=== PATIENT | male | born 1970 | race Caucasian/White ===

== ENCOUNTER 2018-09-16 10:31 | Emergency (ER) | payer MEDICAID ==
[~2018-09-16] VITALS: Ht 172.7 cm; Wt 70.0 kg
[2018-09-16] MEDS ORDERED: ALBU05 IH (10:38)
[2018-09-16] MEDS ORDERED: FLUO10TA3 GT (10:38)
[2018-09-16] MEDS ORDERED: KETOROLAC 60MG/2ML VIAL IM ONE (11:15)
[2018-09-16 12:50] VITALS: BP 124/62
== END 2018-09-16 12:49 | disposition home or self-care (01) ==
LOC: ER 10:31
DX: S62.002A Unspecified fracture of navicular [scaphoid] bone of left wrist, initial encounter for closed fracture (principal); Y08.89XA Assault by other specified means, initial encounter; Y93.9 Activity, unspecified; Y92.9 Unspecified place or not applicable; M79.604 Pain in right leg
CPT/HCPCS: 73590; 96372; 99283; J1885

== ENCOUNTER 2020-11-20 11:50 | Inpatient (IN) | payer MEDICAID ==
[~2020-11-20] VITALS: Ht 172.7 cm; Wt 75.7 kg
[~2020-11-20 11:50] MED LIST: ALBU05 IH; FLUO10TA3 GT
[2020-11-20] MEDS ORDERED: SODIUM CHLORIDE 0.9% 1000ML BAG (SEPSIS BOLUS) IV ONE (12:30)
[2020-11-20] MEDS ORDERED: VANCOMYCIN 1 G PREMIX 200 ML IV ONE (12:30)
[2020-11-20] MEDS ORDERED: PIPERACILLIN/TAZ 3.375G PREMIX 50 ML IV ONE (12:30)
[2020-11-20 12:44] LABS: HEMATOCRIT. 40.6 % (42.0-52.0); HEMOGLOBIN. 13.4 g/dL (14.0-18.0); MEAN CORPUSCULAR HEMOGLOBIN 30.5 pg (28.0-32.0); MEAN CORPUSCULAR VOLUME 92.3 fL (80.0-94.0); MEAN PLATELET VOLUME 7.2 fl (7.4-10.4); PLATELET 262 x1000/uL (130-400)
[2020-11-20 12:49] LABS: CHLORIDE 105 mEq/L (98-107)
[2020-11-20 12:54] LABS: ETHANOL BLOOD < 10 mg/dL
[2020-11-20] MEDS ORDERED: LACTULOSE 20G/30ML UDC PO ONE (13:15)
[2020-11-20 13:24] LABS: PLATELET ESTIMATE NORMAL
[2020-11-20 16:17] LABS: CLARITY URINE CLEAR (CLEAR); COLOR URINE YELLOW (YELLOW); KETONES URINE NEGATIVE (NEGATIVE); LEUKOCYTE ESTERASE URINE TRACE (NEGATIVE); NITRITE URINE NEGATIVE (NEGATIVE); OCCULT BLOOD URINE NEGATIVE (NEGATIVE); PH URINE 5.5 (4.5-8.0); PROTEIN URINE NEGATIVE (NEGATIVE); SPECIFIC GRAVITY URINE 1.013 (1.005-1.030); UROBILINOGEN URINE 0.2 E.U./dL (0.2-1.0)
[2020-11-20 16:39] LABS: PHENCYCLIDINE URINE SCREEN NEGATIVE (NEGATIVE)
[2020-11-20 16:40] LABS: *AMPHETAMINES SCREEN URINE PRESUMTIVE POSITIVE (NEGATIVE); *BARBITURATES SCREEN URINE NEGATIVE (NEGATIVE); *BENZODIAZEPINES SCREEN URINE NEGATIVE (NEGATIVE); *COCAINE SCREEN URINE NEGATIVE (NEGATIVE); CANNABINOID URINE SCREEN PRESUMTIVE POSITIVE (NEGATIVE); OPIATES URINE SCREEN NEGATIVE (NEGATIVE)
[2020-11-20 16:41] LABS: METHADONE URINE SCREEN NEGATIVE (NEGATIVE)
[2020-11-20 21:00] VITALS: BP 143/100
[2020-11-20] MEDS ORDERED: ACETAMINOPHEN 325MG TABLET PO PRN (21:15)
[2020-11-20] MEDS ORDERED: LORAZEPAM 2MG/ML CPJ IV PRN (21:15)
[2020-11-20] MEDS ORDERED: PIPERACILLIN/TAZOBACTAM 3.375 G in DEXTROSE 5% WATER 50 ML IV SCH (22:00)
[2020-11-20] MEDS: PIPERACILLIN/TAZOBACTAM 3.375G in DEXT 5% WATER 50ML IV SCH (23:32)
[2020-11-20] MEDS: VANCOMYCIN 750 MG PREMIX 150 ML IV SCH (23:46)
[2020-11-21] VITALS (15 sets, daily range): BP systolic 84–130; BP diastolic 55–87
[2020-11-21] MEDS: PIPERACILLIN/TAZOBACTAM 3.375G in DEXT 5% WATER 50ML IV SCH ×3 (05:13→22:38)
[2020-11-21] MEDS ORDERED: NALOXONE HCL 1 MG/ML 2ML VIAL IV NR (06:15)
[2020-11-21] MEDS ORDERED: VECURONIUM BROMIDE 10 MG/VIAL IV ONE (08:18)
[2020-11-21] MEDS ORDERED: ETOMIDATE 2MG/ML 10ML VIAL IV ONE (08:18)
[2020-11-21] MEDS ORDERED: SODIUM CHLORIDE 0.9% 10ML VIAL ONE (08:18)
[2020-11-21] MEDS ORDERED: EPINEPHRINE 0.1MG/ML (1:10,000) 10ML SYR ONE (08:32)
[2020-11-21] MEDS ORDERED: NALOXONE HCL 0.4 MG/ML 1ML VIAL ONE (08:32)
[2020-11-21] MEDS ORDERED: NALOXONE HCL 1 MG/ML 2ML VIAL IV PRN (08:45)
[2020-11-21 10:00] LABS: HEMATOCRIT. 43.9 % (42.0-52.0); HEMOGLOBIN. 14.3 g/dL (14.0-18.0); MEAN CORPUSCULAR HEMOGLOBIN 30.8 pg (28.0-32.0); MEAN CORPUSCULAR VOLUME 94.3 fL (80.0-94.0); MEAN PLATELET VOLUME 7.5 fl (7.4-10.4); PLATELET 300 x1000/uL (130-400); RED BLOOD CELL COUNT 4.66 mill/uL (4.7-6.1); RED CELL DISTRIBUTION WIDTH 14.6 % (11.6-14.6)
[2020-11-21 10:15] LABS: CHLORIDE 104 mEq/L (98-107)
[2020-11-21] MEDS: LACTULOSE 20G/30ML UDC PO SCH ×3 (10:39→22:22)
[2020-11-21] MEDS: ENOXAPARIN 40MG/0.4ML SYR SUBCUT SCH (10:40)
[2020-11-21] MEDS: VANCOMYCIN 750 MG PREMIX 150 ML IV SCH (11:13)
[2020-11-21] MEDS ORDERED: DIGOXIN 500MCG/2ML AMP IV SCH (11:45)
[2020-11-21 12:25] LABS: BG BASE EXCESS -1.5 mmol/L (-2.0-2.0); BG CARBOXYHEMOGLOBIN 0.7 % (0.5-1.5); BG FRACTION INSPIRED OXYGEN 100; BG METHEMOGLOBIN 0.4 % (0.0-1.5); BG OXYHEMOGLOBIN 97.9 % (94.0-97.0); BG PCO2 87.6 mmHg (35.0-45.0); BG PH 7.153 (7.350-7.450); BG SAMPLE SITE RIGHT RADIAL; BG TOTAL HEMOGLOBIN 14.7 g/dL (12.0-18.0); BG VENT MODE MASK - NRB
[2020-11-21] MEDS ORDERED: DIGOXIN 500MCG/2ML AMP IV NR (13:15)
[2020-11-21] MEDS: DEXT 5%/0.45% NACL 1000ML 1,000 ML IV SCH (15:00)
[2020-11-21] MEDS ORDERED: THIAMINE HCL 100 MG in SODIUM CHLORIDE 0.9% 49 ML IV NR (15:00)
[2020-11-21] MEDS: IPRATROPIUM/ALBUTEROL 0.5-3(2.5)MG/3ML NEB HHN SCH ×2 (15:28→19:54)
[2020-11-21 17:09] LABS: BG BASE EXCESS 1.3 mmol/L (-2.0-2.0); BG CARBOXYHEMOGLOBIN 0.6 % (0.5-1.5); BG DEOXYHEMOGLOBIN 7.1 % (0.0-5.0); BG HCO3 ACT 36.4 mmol/L (22.0-26.0); BG METHEMOGLOBIN 0.2 % (0.0-1.5); BG OXYGEN SATURATION 92.8 % (92.0-98.5); BG OXYHEMOGLOBIN 92.1 % (94.0-97.0); BG PCO2 131.5 mmHg (35.0-45.0); BG PO2 73.9 mmHg (75.0-100.0); BG SAMPLE SITE RIGHT RADIAL; BG VENT MODE MASK - BIPAP
[2020-11-21 18:55] LABS: BG BASE EXCESS -1.5 mmol/L (-2.0-2.0); BG CARBOXYHEMOGLOBIN 0.5 % (0.5-1.5); BG DEOXYHEMOGLOBIN 5.6 % (0.0-5.0); BG FRACTION INSPIRED OXYGEN 50; BG HCO3 ACT 24.8 mmol/L (22.0-26.0); BG METHEMOGLOBIN 0.1 % (0.0-1.5); BG OXYGEN SATURATION 94.4 % (92.0-98.5); BG OXYHEMOGLOBIN 93.8 % (94.0-97.0); BG PCO2 47.7 mmHg (35.0-45.0); BG PH 7.334 (7.350-7.450); BG PO2 67.6 mmHg (75.0-100.0); BG SAMPLE SITE RIGHT RADIAL; BG TOTAL HEMOGLOBIN 14.2 g/dL (12.0-18.0); BG VENT MODE VENT - AC
[2020-11-21] MEDS ORDERED: PHENYLEPHRINE 100 MG in DEXT 5% WATER 240 ML IV PRN (19:00)
[2020-11-21] MEDS: PROPOFOL 10MG/ML 100ML 100 ML IV PRN (19:40)
[2020-11-21 22:08] LABS: PLATELET ESTIMATE NORMAL
[2020-11-21] MEDS: METHYLPREDNISOLONE SOD SUCC 40 MG/ML VIAL IV SCH (22:22)
[2020-11-21] MEDS: VANCOMYCIN 1 G PREMIX 200 ML IV SCH (22:38)
[2020-11-22] VITALS (47 sets, daily range): BP systolic 89–118; BP diastolic 53–82
[2020-11-22] MEDS: PROPOFOL 10MG/ML 100ML 100 ML IV PRN ×3 (01:33→22:32)
[2020-11-22] MEDS: DEXT 5%/0.45% NACL 1000ML 1,000 ML IV SCH ×2 (01:34→13:34)
[2020-11-22] MEDS: IPRATROPIUM/ALBUTEROL 0.5-3(2.5)MG/3ML NEB HHN SCH ×5 (02:47→21:22)
[2020-11-22] MEDS: LACTULOSE 20G/30ML UDC PO SCH ×3 (06:04→21:21)
[2020-11-22] MEDS: METHYLPREDNISOLONE SOD SUCC 40 MG/ML VIAL IV SCH ×3 (06:04→21:23)
[2020-11-22] MEDS: PIPERACILLIN/TAZOBACTAM 3.375G in DEXT 5% WATER 50ML IV SCH ×3 (06:12→21:21)
[2020-11-22 06:34] LABS: CHLORIDE 101 mEq/L (98-107)
[2020-11-22 06:37] LABS: HEMATOCRIT. 35.2 % (42.0-52.0); HEMOGLOBIN. 11.8 g/dL (14.0-18.0); MEAN CORPUSCULAR HEMOGLOBIN 30.6 pg (28.0-32.0); MEAN CORPUSCULAR VOLUME 91.2 fL (80.0-94.0); MEAN PLATELET VOLUME 7.7 fl (7.4-10.4); PLATELET 230 x1000/uL (130-400); RED BLOOD CELL COUNT 3.85 mill/uL (4.7-6.1); RED CELL DISTRIBUTION WIDTH 14.4 % (11.6-14.6)
[2020-11-22] MEDS: ENOXAPARIN 40MG/0.4ML SYR SUBCUT SCH (09:22)
[2020-11-22 09:39] LABS: BG BASE EXCESS 4.5 mmol/L (-2.0-2.0); BG CARBOXYHEMOGLOBIN 0.3 % (0.5-1.5); BG DEOXYHEMOGLOBIN 3.3 % (0.0-5.0); BG FRACTION INSPIRED OXYGEN 50; BG HCO3 ACT 32.5 mmol/L (22.0-26.0); BG METHEMOGLOBIN 0.3 % (0.0-1.5); BG OXYGEN SATURATION 96.7 % (92.0-98.5); BG OXYHEMOGLOBIN 96.1 % (94.0-97.0); BG PCO2 65.8 mmHg (35.0-45.0); BG PH 7.312 (7.350-7.450); BG PO2 89.3 mmHg (75.0-100.0); BG SAMPLE SITE RIGHT RADIAL; BG TOTAL HEMOGLOBIN 12.8 g/dL (12.0-18.0); BG VENT MODE VENT - AC
[2020-11-22] MEDS: VANCOMYCIN 1 G PREMIX 200 ML IV SCH (10:53)
[2020-11-22 11:01] LABS: PLATELET ESTIMATE NORMAL
[2020-11-22] MEDS: VANCOMYCIN 750 MG PREMIX 150 ML IV SCH ×2 (16:11→23:07)
[2020-11-22] MEDS ORDERED: PROPOFOL 10MG/ML 100ML 100 ML IV PRN (21:15)
[2020-11-23] VITALS (32 sets, daily range): BP systolic 108–140; BP diastolic 43–96
[2020-11-23] MEDS: IPRATROPIUM/ALBUTEROL 0.5-3(2.5)MG/3ML NEB HHN SCH ×5 (00:51→21:26)
[2020-11-23] MEDS: DEXT 5%/0.45% NACL 1000ML 1,000 ML IV SCH ×4 (02:45→21:26)
[2020-11-23] MEDS: PIPERACILLIN/TAZOBACTAM 3.375G in DEXT 5% WATER 50ML IV SCH ×3 (06:53→23:39)
[2020-11-23] MEDS: VANCOMYCIN 750 MG PREMIX 150 ML IV SCH ×2 (06:53→14:31)
[2020-11-23] MEDS: METHYLPREDNISOLONE SOD SUCC 40 MG/ML VIAL IV SCH ×3 (06:53→21:24)
[2020-11-23] MEDS: LACTULOSE 20G/30ML UDC PO SCH ×3 (06:53→21:23)
[2020-11-23] MEDS: ENOXAPARIN 40MG/0.4ML SYR SUBCUT SCH (08:23)
[2020-11-23 09:14] LABS: BG BASE EXCESS 5.2 mmol/L (-2.0-2.0); BG CARBOXYHEMOGLOBIN 0.3 % (0.5-1.5); BG DEOXYHEMOGLOBIN 6.6 % (0.0-5.0); BG FRACTION INSPIRED OXYGEN 50; BG OXYGEN SATURATION 93.4 % (92.0-98.5); BG OXYHEMOGLOBIN 93.1 % (94.0-97.0); BG PCO2 44.5 mmHg (35.0-45.0); BG PH 7.446 (7.350-7.450); BG PO2 66.4 mmHg (75.0-100.0); BG SAMPLE SITE RIGHT RADIAL; BG TOTAL HEMOGLOBIN 12.4 g/dL (12.0-18.0); BG VENT MODE VENT - AC
[2020-11-23 10:00] LABS: BG CARBOXYHEMOGLOBIN 0.1 % (0.5-1.5); BG DEOXYHEMOGLOBIN 2.2 % (0.0-5.0); BG FRACTION INSPIRED OXYGEN 40; BG HCO3 ACT 28.9 mmol/L (22.0-26.0); BG METHEMOGLOBIN 0.2 % (0.0-1.5); BG OXYGEN SATURATION 97.8 % (92.0-98.5); BG OXYHEMOGLOBIN 97.5 % (94.0-97.0); BG PCO2 44.4 mmHg (35.0-45.0); BG PH 7.431 (7.350-7.450); BG PO2 98.9 mmHg (75.0-100.0); BG SAMPLE SITE RIGHT RADIAL; BG TOTAL HEMOGLOBIN 12.4 g/dL (12.0-18.0); BG VENT MODE VENT - CPAP
[2020-11-23 13:01] LABS: HEMATOCRIT. 34.1 % (42.0-52.0); HEMOGLOBIN. 11.2 g/dL (14.0-18.0); MEAN CORPUSCULAR HEMOGLOBIN 30.4 pg (28.0-32.0); MEAN CORPUSCULAR VOLUME 92.3 fL (80.0-94.0); MEAN PLATELET VOLUME 8.1 fl (7.4-10.4); PLATELET 241 x1000/uL (130-400); RED CELL DISTRIBUTION WIDTH 14.4 % (11.6-14.6)
[2020-11-23 13:12] LABS: CHLORIDE 102 mEq/L (98-107)
[2020-11-23 13:21] LABS: VANCOMYCIN TROUGH 17.4 ug/mL (5.0-10.0)
[2020-11-23 13:52] LABS: PLATELET ESTIMATE NORMAL
[2020-11-23] MEDS ORDERED: VANCOMYCIN 1 G PREMIX 200 ML IV SCH (21:00)
[2020-11-24] VITALS: BP 123/82
[2020-11-24] MEDS: IPRATROPIUM/ALBUTEROL 0.5-3(2.5)MG/3ML NEB HHN SCH ×4 (00:12→12:57)
[2020-11-24] MEDS: VANCOMYCIN 1 G PREMIX 200 ML IV SCH ×2 (03:14→12:15)
[2020-11-24 04:00] VITALS: BP 135/88
[2020-11-24] MEDS: LACTULOSE 20G/30ML UDC PO SCH (05:24)
[2020-11-24] MEDS: PIPERACILLIN/TAZOBACTAM 3.375G in DEXT 5% WATER 50ML IV SCH (05:25)
[2020-11-24] MEDS: METHYLPREDNISOLONE SOD SUCC 40 MG/ML VIAL IV SCH (05:25)
[2020-11-24 07:09] LABS: HEMATOCRIT. 32.9 % (42.0-52.0); HEMOGLOBIN. 11.4 g/dL (14.0-18.0); MEAN CORPUSCULAR VOLUME 89.7 fL (80.0-94.0); MEAN PLATELET VOLUME 7.6 fl (7.4-10.4); PLATELET 248 x1000/uL (130-400); RED BLOOD CELL COUNT 3.67 mill/uL (4.7-6.1); RED CELL DISTRIBUTION WIDTH 14.3 % (11.6-14.6)
[2020-11-24 07:20] LABS: CHLORIDE 103 mEq/L (98-107)
[2020-11-24] MEDS: ENOXAPARIN 40MG/0.4ML SYR SUBCUT SCH (08:23)
[2020-11-24 11:15] LABS: PLATELET ESTIMATE NORMAL
[2020-11-24 13:00] VITALS: BP 126/74
[2020-11-24] MEDS: DEXT 5%/0.45% NACL 1000ML 1,000 ML IV SCH (13:14)
== END 2020-11-24 14:30 | disposition home or self-care (01) | DRG 720 ==
LOC: ER 12:01 → MICUSO 15:22 → EDBEDREQ 15:32 → 8WST 20:11 → CVICU 11-21 18:28 → 7EST 11-23 15:59
PROVIDERS: ADMIT Internal Medicine; ATTEND Internal Medicine
PROC: 5A1945Z Respiratory Ventilation, 24-96 Consecutive Hours (ICD-10-PCS; principal; 2020-11-21)
PROC: 06HY33Z Insertion of Infusion Device into Lower Vein, Percutaneous Approach (ICD-10-PCS; 2020-11-21)
PROC: 5A09357 Assistance with Respiratory Ventilation, Less than 24 Consecutive Hours, Continuous Positive Airway Pressure (ICD-10-PCS; 2020-11-21)
PROC: 0BH17EZ Insertion of Endotracheal Airway into Trachea, Via Natural or Artificial Opening (ICD-10-PCS; 2020-11-21)
DX: A41.9 Sepsis, unspecified organism (principal); J96.02 Acute respiratory failure with hypercapnia; J69.0 Pneumonitis due to inhalation of food and vomit; G92 Toxic encephalopathy; E44.1 Mild protein-calorie malnutrition; E72.20 Disorder of urea cycle metabolism, unspecified; E87.2 Acidosis; T50.901A Poisoning by unspecified drugs, medicaments and biological substances, accidental (unintentional), initial encounter; I47.1 Supraventricular tachycardia; Z20.822 Contact with and (suspected) exposure to COVID-19; J45.909 Unspecified asthma, uncomplicated; L03.114 Cellulitis of left upper limb; R74.01 Elevation of levels of liver transaminase levels; F15.10 Other stimulant abuse, uncomplicated; F12.10 Cannabis abuse, uncomplicated; Z79.899 Other long term (current) drug therapy; Z68.25 Body mass index [BMI] 25.0-25.9, adult; Y92.89 Other specified places as the place of occurrence of the external cause
CPT/HCPCS: 36415; 36600; 70551; 71045; 80048; 80053; 80202; 80305; 80307; 80320; 80329; 81003; 82040; 82140; 82375; 82805; 82962; 83036; 84134; 84145; 84478; 84484; 85025; 87070; 87426; 92610; 93005; 93306; 94002; 94003; 94640; 94660; 97162; 99285; J1160; J1650; J2310; J2543; J2704; J2920; J3370; J3411; J3490; J7030; J7040; J7060; A4315; G0480

== ENCOUNTER 2022-11-21 17:16 | Emergency (ER) | payer MEDICAID ==
[~2022-11-21] VITALS: Ht 165.1 cm; Wt 64.0 kg
[~2022-11-21 17:16] MED LIST changes: -FLUO10TA3 GT; +FLUO10TA53 GT
[2022-11-21 17:21] VITALS: TEMP 98.5; O2SAT 99
[2022-11-21] MEDS ORDERED: KETOROLAC 60MG/2ML VIAL IM ONE (17:30)
[2022-11-21 17:46] VITALS: BP 126/78; PULSE 80; RESP 16
[2022-11-21] MEDS ORDERED: T3 PO (20:24)
[2022-11-21] MEDS ORDERED: IBUP-2029 MT (20:24)
[2022-11-21] MEDS ORDERED: HYDROCODONE/ACETAMINOPHEN 10/325MG TABLET PO ONE (20:30)
[2022-11-21] MEDS ORDERED: MORPHINE SULFATE 10 MG/ML CPJ IM ONE (20:45)
== END 2022-11-21 21:08 | disposition home or self-care (01) ==
LOC: ER 17:16
DX: S42.302A Unspecified fracture of shaft of humerus, left arm, initial encounter for closed fracture (principal); J45.909 Unspecified asthma, uncomplicated; F19.90 Other psychoactive substance use, unspecified, uncomplicated; W21.32XA Struck by skate blades, initial encounter; Y93.89 Activity, other specified; Y92.89 Other specified places as the place of occurrence of the external cause; Y99.8 Other external cause status
CPT/HCPCS: 73090; 73110; 29105; 96372; 99284; J1885; J2270; Z7610; 99291; A4565